=== PATIENT | male | born 1965 | race Caucasian/White ===

== ENCOUNTER 2017-09-26 11:06 | Emergency (ER) | payer BC ==
[2017-09-26] MEDS: DIPHTH/TET/ACEL PERTUSS (ADULT) 0.5 ML VIAL IM* (11:46)
[2017-09-26] MEDS: LIDOCAINE 1% (MDV) 10 ML INJ INJ (11:48)
== END 2017-09-26 14:37 | disposition home or self-care (01) ==
LOC: FTE 11:06
DX: S51.812A Laceration without foreign body of left forearm, initial encounter (principal); I10 Essential (primary) hypertension; E11.9 Type 2 diabetes mellitus without complications; W22.8XXA Striking against or struck by other objects, initial encounter; Y92.009 Unspecified place in unspecified non-institutional (private) residence as the place of occurrence of the external cause; Z23 Encounter for immunization
CPT/HCPCS: 73090; 90471; 90715; 99283-25

== ENCOUNTER 2017-09-28 08:11 | Emergency (ER) | payer BC | END 2017-09-28 09:31 | disposition home or self-care (01) | LOC: FTE 08:11 | DX: S41.112D Laceration without foreign body of left upper arm, subsequent encounter (principal); I10 Essential (primary) hypertension; E11.9 Type 2 diabetes mellitus without complications; X58.XXXD Exposure to other specified factors, subsequent encounter; Z48.01 Encounter for change or removal of surgical wound dressing; Z87.891 Personal history of nicotine dependence | CPT/HCPCS: 99281 ==